=== PATIENT | male | born 1990 | race African-American/Black ===

== ENCOUNTER → 2025-08-06 | Outpatient (CLI) | payer OTHER ==
[~2025-08-06] MED LIST: ISOVUE-300 61% 100 ML VIAL As Ordered ONE; LIDOCAINE 1% MDV 20 ML VIAL As Ordered ONE; TRIAMCINOLONE ACETONIDE SUSP 40MG/ML 1ML VIAL As Ordered ONE
== END ==
LOC: M RAD 08:11
PROVIDERS: ATTEND Physician Assistant Surgical
DX: S73.122A Ischiocapsular ligament sprain of left hip, initial encounter (principal); S73.121A Ischiocapsular ligament sprain of right hip, initial encounter; X58.XXXA Exposure to other specified factors, initial encounter; Y92.9 Unspecified place or not applicable
CPT/HCPCS: 20610; 77002; J3301; Q9967